=== PATIENT | female | born 1985 | race Caucasian/White ===

== ENCOUNTER 2019-08-28 15:29 | Emergency (ER) | payer OTHER, SELFPAY ==
[2019-08-28 15:39] VITALS: BP 129/89; PULSE 70; RESP 16; TEMP 36.6; O2SAT 100
--- NOTE | 2019-08-28 15:46 | ED.WOUNDLAC ---
HPI - Wound/Laceration General Chief Complaint: Wound/Laceration Stated Complaint: spider bite Time Seen by Provider: 08/28/19 15:46 Source: patient and RN notes reviewed Mode of arrival: ambulatory Limitations: no limitations History of Present Illness HPI narrative: This is a 34 years old male presents to the office for an evaluation of possible infected insect bite. She got bit by something this morning when she went out to clean the picnic table. It was itching at first; however the affect area is painful with increase swelling and redness. Td up-to-date. Denies history of MRSA. Related Data Home Medications Medication Instructions Recorded Confirmed cetirizine 10 mg tablet See Rx Instructions .ROUTE .COMPLEX 02/14/19 omeprazole 08/28/19 Allergies Allergy/AdvReac Type Severity Reaction Status Date / Time hydrocodone Allergy Mild RASH, Unverified 06/14/17 15:59 NAUSEA NSAIDS (Non-Steroidal AdvReac Other Verified 08/28/19 15:53 Anti-Inflamma Review of Systems Review of Systems: Narrative: CONSTITUTIONAL: Denies fever or chills ENT: Denies congestion CARDIOVASCULAR: Denies chest pain RESPIRATORY: Denies cough GASTROINTESTINAL: Denies nausea, vomiting SKIN: Reports left thigh got insect bite with redness, swelling MUSCULOSKELETAL: Denies any other injury NEUROLOGIC: Denies lightheaded PMFSH Past Medical History Medical History (Updated 08/28/19 @ 16:00 by KRISTIN Watt) Morbid obesity due to excess calories Primary osteoarthritis involving multiple joints Surgical History Surgical History (Updated 08/28/19 @ 16:00 by KRISTIN Watt) Hx of gastric bypass Social History Social History Smoking status: Never smoker Alcohol intake: never Comments At time of signature, I agree with nursing past medical, surgical, social and family history. There is no relevant family history pertinent to the presenting complaint. Exam Narrative: Exam Narrative: GENERAL: This is a well-nourished, well-developed patient, in no apparent distress. CARDIOVASCULAR: Regular rate and rhythm without murmurs, gallops, or rubs. RESPIRATORY: Clear to auscultation. Breath sounds equal bilaterally. No wheezes, rales, or rhonchi. GASTROINTESTINAL: Abdomen soft, non-tender, nondistended. Bowel sounds are active. No guarding. NEURO: awake, alert, and oriented to person, place and time. There were no obvious focal neurologic abnormalities. Steady gait EXTREMITIES: left medial aspect below knee noted a circular-dimpling nodule with erythema, edematous with tenderness and warmth to palpation. NO lymphandenitis. Normal ROM in lower extremities. [place] Coma Scale Eye Opening: Spontaneous 4 [place] Coma Scale Motor: Obeys Commands 6 [place] Coma Scale Verbal: Oriented 5 Course Vital Signs Vital signs: Vital Signs Temperature 97.8 F 08/28/19 15:39 Pulse Rate 70 08/28/19 15:39 Respiratory Rate 16 08/28/19 15:39 Blood Pressure 129/89 08/28/19 15:39 Pulse Oximetry 100 08/28/19 15:39 Temperature 97.8 F 08/28/19 15:39 Pulse Rate 70 08/28/19 15:39 Respiratory Rate 16 08/28/19 15:39 Blood Pressure 129/89 08/28/19 15:39 Pulse Oximetry 100 08/28/19 15:39 MDM - Wound/Laceration MDM Narrative Medical decision making narrative: Discharge instructions reviewed with patient, as well as provided in writing per nursing staff. The instructions also include specific and strict return/GO TO THE ER as well as f/u information. All questions have been answered, and the patient deny any further questions with discharge and discharge plan. Differential Diagnosis Differential diagnosis: Likely abscess and other (insect bite, cellultitis) Critical Care Time Critical Care Time Critical Care Time: No Discharge Plan Discharge Clinical Impression: Infected insect bite Qualifiers: Encounter type: initial encounter Q
== END 2019-08-28 15:58 | disposition home or self-care (01) ==
PROVIDERS: Emergency Provider Nurse Practitioner; PCP Emergency Medicine
DX: S70.362A Insect bite (nonvenomous), left thigh, initial encounter (principal); Z98.84 Bariatric surgery status; M19.90 Unspecified osteoarthritis, unspecified site; E66.01 Morbid (severe) obesity due to excess calories; Z68.41 Body mass index [BMI] 40.0-44.9, adult; W57.XXXA Bitten or stung by nonvenomous insect and other nonvenomous arthropods, initial encounter
CPT/HCPCS: 99213; G0463

== ENCOUNTER 2019-09-01 16:30 | Emergency (ER) | payer OTHER, SELFPAY ==
[2019-09-01 16:32] VITALS: BP 134/85; PULSE 65; RESP 18; TEMP 36.2; O2SAT 100
--- NOTE | 2019-09-01 16:36 | ED.GENADULT ---
HPI - General Adult General Chief complaint: Wound/Laceration Stated complaint: Spider bite Time Seen by Provider: 09/01/19 16:34 Source: patient Mode of arrival: ambulatory Limitations: no limitations History of Present Illness HPI narrative: Patient is a 34-year-old female who presents for evaluation of wound to left knee. Patient reports that she may have been bitten by a bug or some sort of spider when she was working outside a week ago. Wound was initially noticed on 08/27, patient was seen at urgent care, and she was prescribed Bactrim. Patient has approximately 2 days left of this medication. Patient states that the wound continues to grow in size, somewhat itchy in nature. No discharge from the wound. No leaking or purulent matter. Nonpainful. No history of allergic reactions. No tick exposures. No similar wounds or history of skin infections. Patient does not believe she had any sort of heat burn or chemical exposure that would burn the skin. Related Data Home Medications Medication Instructions Recorded Confirmed cetirizine 10 mg tablet See Rx Instructions .ROUTE .COMPLEX 02/14/19 omeprazole 08/28/19 Allergies Allergy/AdvReac Type Severity Reaction Status Date / Time hydrocodone Allergy Mild RASH, Unverified 09/01/19 16:41 NAUSEA acetaminophen [From Percocet] Allergy Rash Verified 09/01/19 16:41 oxycodone [From Percocet] Allergy Rash Verified 09/01/19 16:41 NSAIDS (Non-Steroidal AdvReac Other Verified 09/01/19 16:41 Anti-Inflamma Review of Systems Review of Systems: Narrative: CONSTITUTIONAL: Denies fever CARDIOVASCULAR: Denies chest pain RESPIRATORY: Denies cough or dyspnea. GASTROINTESTINAL: Denies abdominal pain SKIN: Denies rash reports wound to the left knee MUSCULOSKELETAL: Denies back pain NEUROLOGIC: Denies headache [facility] Past Medical History Medical History Morbid obesity due to excess calories Primary osteoarthritis involving multiple joints Surgical History Surgical History Hx of gastric bypass Social History Social History Smoking status: Never smoker Alcohol intake: never Exam Narrative: Exam Narrative: GENERAL: Awake, alert, conversant HEAD: Normocephalic, atraumatic. EYES: PERRLA and EOMI. ENT: Nares clear, no rhinorrhea or epistaxis. Mucous membranes moist. NECK: Supple. CHEST: No respiratory distress, breathing even and non labored HEART: Regular rate, sinus rhythm ABDOMEN:Non distended, non tender EXTREMITIES: Normal range of motion. No edema. SKIN: Warm, dry, no rash. Approximately 3 cm x 3 cm circular wound with raised edges, slightly purpleish center, without ecchymoses, excoriation or purulent discharge. Mild warmth, mild erythema. No streaking erythema. No sign of abscess. No petechiae. NEURO:No focal deficits. Alert and oriented x3 Course Vital Signs Vital signs: Vital Signs Temperature 36.2 C L 09/01/19 16:32 Pulse Rate 65 09/01/19 16:32 Respiratory Rate 18 09/01/19 16:32 Blood Pressure 134/85 09/01/19 16:32 Pulse Oximetry 100 09/01/19 16:32 Temperature 36.2 C L 09/01/19 16:32 Pulse Rate 65 09/01/19 16:32 Respiratory Rate 18 09/01/19 16:32 Blood Pressure 134/85 09/01/19 16:32 Pulse Oximetry 100 09/01/19 16:32 Medical Decision Making [facility] Narrative Medical decision making narrative: Patient with wound that does not appear to be acute cellulitis, but may also have some delayed hypersensitivity reaction. Patient does report it is somewhat itchy. No systemic signs of illness. Patient denies any heat or chemical exposure that would be a chemical or heat irritation, no burn type reaction. Patient has been on Bactrim with some improvement, but not much improvement. We will expand to Keflex, and I also advised dermatology and PCP follow-up.
== END 2019-09-01 17:13 | disposition home or self-care (01) ==
PROVIDERS: Emergency Provider Emergency Medicine; PCP Emergency Medicine
DX: L03.116 Cellulitis of left lower limb (principal); E66.09 Other obesity due to excess calories; Z68.41 Body mass index [BMI] 40.0-44.9, adult; M19.90 Unspecified osteoarthritis, unspecified site; Z98.84 Bariatric surgery status
CPT/HCPCS: 99283

== ENCOUNTER 2022-04-05 22:45 | Emergency (ER) | payer OTHER, SELFPAY ==
--- NOTE | ~2022-04-05 | CT_ITS ---
Noncontrast CT scan of the cervical spine Technique: Multiple contiguous axial [address] images of the cervical spine were obtained and rec onstructed in 2D sagittal and coronal planes on the acquisition scanner. Dose reduction technique was used on this scan by utilizing automated exposure control, adjustment of the mA and/or kV according to patient size. Clinical History: Pain Findings: No fractures or dislocations. Unremarkable visualized bony structures. The intervertebral disc spaces are preserved. No prevertebral soft tissue swelling. Impression: No fracture or subluxation of the cervical spine. Reviewed, dictated and finalized at location [facility] Impression: No fracture or subluxation of the cervical spine.
--- NOTE | ~2022-04-05 | CT_ITS ---
Non-contrast Head CT History: Head injury Technique: Axial non-contrast imaging of the brain was performed. Dose reduction technique was used on this scan by utilizing automated exposure control and iterative reconstruction technique. The dose -length product (DLP) was 605.33 mGy-cm. Findings: There is no evidence of intracranial hemorrhage, mass lesion, or acute infarct. Brain par enchyma appears normal. The ventricles and subarachnoid spaces are normal in size. The calvarium ap pears normal. The visualized paranasal sinuses and mastoid air cells are clear. There is mild soft t issue swelling in the left frontal scalp. Impression: No intracranial abnormality seen. Mild soft tissue swelling in the left frontal scalp. Reviewed, dictated and finalized at [facility]. RNMENT AFFAIRS FELLOW Impression: No intracranial abnormality seen. Mild soft tissue swelling in the left frontal scalp.
[2022-04-05 22:50] VITALS: BP 155/91; PULSE 99; RESP 20; TEMP 36.4; O2SAT 100
--- NOTE | 2022-04-06 00:16 | PC.NURSE ---
Ice pack given to pt
--- NOTE | 2022-04-06 02:05 | ED.FALL ---
HPI - Fall General Chief Complaint: Fall Stated Complaint: fall-head injury Time Seen by Provider: 04/06/22 01:49 History of Present Illness HPI Narrative: Patient was in the basement when she slipped on water, and hit her head, she thinks that she did pass out for a minute, her daughter found her and brought her in. She did have a few drinks earlier. She did throw up, she is now feeling well other than the headache, no focal numbness or weakness, she is ambulating without issues. Does have some photophobia. Related Data Home Medications Medication Instructions Recorded Confirmed cetirizine 10 mg tablet See Rx Instructions .Route .COMPLEX 02/14/19 omeprazole 40 mg capsule,delayed 08/28/19 release Allergies Allergy/AdvReac Type Severity Reaction Status Date / Time hydrocodone Allergy Mild RASH, Unverified 09/01/19 16:41 NAUSEA acetaminophen [From Percocet] Allergy Rash Verified 09/01/19 16:41 oxycodone [From Percocet] Allergy Rash Verified 09/01/19 16:41 NSAIDS (Non-Steroidal AdvReac Other Verified 09/01/19 16:41 Anti-Inflamma Review of Systems Review of Systems: CONST: No fever. HEENT: Head trauma C/V: No chest pain RESP: No cough GI: Reports nausea and vomiting : No dysuria. M/S: No joint pain. SKIN: Swelling to left forehead NEURO: [Headache, no focal numbness or weakness] PSYCH: [No depression] PMFSH Past Medical History Medical History Morbid obesity due to excess calories Primary osteoarthritis involving multiple joints Surgical History Surgical History Hx of gastric bypass Social History Social History Smoking status: Never smoker Alcohol intake: never Exam Narrative: EXAMINATION OF ORGAN SYSTEMS/BODY AREAS: Constitutional: Vital signs per nursing GENERAL: Nontoxic appearing, but does appear somewhat uncomfortable HEAD: hematoma to left forehead. EYES: EOMI, conjunctiva normal ENT: Hearing grossly intact LUNGS: Nonlabored breathing. HEART: [Regular rate and rhythm] ABD: [Soft], nontender EXT: Normal range of motion SKIN: Left forehead bruising NEURO: [Alert and oriented x 3. No gross focal sensory or strength deficits.] Ambulating with normal gait. PSYCH: Normal affect Course Vital Signs Vital signs: Vital Signs Temperature 97.6 F 04/05/22 22:50 Pulse Rate 99 04/05/22 22:50 Respiratory Rate 20 04/05/22 22:50 Blood Pressure 155/91 H 04/05/22 22:50 Pulse Oximetry 100 04/05/22 22:50 Oxygen Delivery Room Air 04/05/22 22:50 Temperature 97.6 F 04/05/22 22:50 Pulse Rate 99 04/05/22 22:50 Respiratory Rate 20 04/05/22 22:50 Blood Pressure 155/91 H 04/05/22 22:50 Pulse Oximetry 100 04/05/22 22:50 Oxygen Delivery Room Air 04/05/22 22:50 MDM - Fall MDM Narrative Medical decision making narrative: 37-year-old female presents after mechanical fall with head injury, vital signs stable, neurologic exam intact, though she does appear somewhat uncomfortable, CT head obtained as per [place] CT head rules she did have episodes of vomiting, and CT C-spine obtained as she did have some alcoholic drinks earlier. These are unremarkable for any acute intracranial abnormality or fracture and reviewed independently by myself. I did offer her medications here for her symptoms however she would prefer to go home at this time, she is given strict precautions, as well as discussion of concussion, she is to follow-up with her primary care doctor. Patient and family member at bedside verbalized understanding and agreement with this plan. Lab Data Labs: UCG Bedside Result Negative Reference Range: Negative Discharge Plan Discharge Clinical Impression: Concussion Patient Disposition: Home, Self-Care Condition:
== END 2022-04-06 02:26 | disposition home or self-care (01) ==
PROVIDERS: Emergency Provider Emergency Medicine; PCP Emergency Medicine
DX: S06.0X1A Concussion with loss of consciousness of 30 minutes or less, initial encounter (principal); S00.83XA Contusion of other part of head, initial encounter; E66.01 Morbid (severe) obesity due to excess calories; Z68.33 Body mass index [BMI] 33.0-33.9, adult; M19.90 Unspecified osteoarthritis, unspecified site; Z98.84 Bariatric surgery status; W01.0XXA Fall on same level from slipping, tripping and stumbling without subsequent striking against object, initial encounter
CPT/HCPCS: 70450; 72125; 81025; 99284

== ENCOUNTER 2022-04-20 08:21 | Emergency (ER) | payer OTHER, SELFPAY ==
--- NOTE | 2022-04-20 08:28 | ED.URI ---
HPI - URI/Sore Throat General Chief Complaint: Upper Respiratory Infection Stated Complaint: Sinus Time Seen by Provider: 04/20/22 08:30 Source: patient Mode of arrival: ambulatory Limitations: no limitations History of Present Illness HPI Narrative: Pio is a 37-year-old female patient presenting to the clinic today with complaints of possible sinus infection. She reports she has nasal congestion and sinus pressure. Denies any fever or chills. Denies any known exposure to anybody with COVID, flu, or strep. States that the symptoms have been going on for approximately 4 days. MD elicited complaint: nasal congestion and sinus pain Related Data Home Medications Medication Instructions Recorded Confirmed cetirizine 10 mg tablet 10 mg PO DAILY 02/14/19 omeprazole 40 mg capsule,delayed 40 mg PO DAILY 08/28/19 release Allergies Allergy/AdvReac Type Severity Reaction Status Date / Time hydrocodone Allergy Mild RASH, Verified 04/20/22 08:25 NAUSEA acetaminophen [From Percocet] Allergy Rash Verified 04/20/22 08:25 oxycodone [From Percocet] Allergy Rash Verified 04/20/22 08:25 NSAIDS (Non-Steroidal AdvReac Other Verified 04/20/22 08:25 Anti-Inflamma Review of Systems Review of Systems: Pertinent positives per HPI. Patient denies any fever, chills, rash, headache, visual changes, dizziness, cough, shortness of breath, chest pain, palpitations, nausea, vomiting, diarrhea, constipation, abdominal pain, or any urinary issues. [facility] Past Medical History Medical History (Updated 04/20/22 @ 08:34 by Cameron Agudelo, SHIRA) Morbid obesity due to excess calories Primary osteoarthritis involving multiple joints Surgical History Surgical History Hx of gastric bypass Social History Social History Smoking status: Never smoker Alcohol intake: never Comments At the time of my signature, I reviewed and agree with the nursing past medical, surgical, social, and family history. There is no relevant family history pertinent to the patient complaint. Exam Narrative: General: Well-developed,obese, in no apparent distress Head: Normocephalic, atraumatic Eyes: Pupils equally round and reactive to light bilaterally, EOM intact, sclera and conjunctive clear, no discharge, lids normal Ears: TMs intact and clear, ear canals clear, no drainage, grossly hearing normal. Nose: Nares patent, clear nasal discharge, moderate inflammation, maxillary sinus tenderness. Mouth: Oral pharynx without lesions or masses, good dentition, MMM. PND Neck: Supple, trachea midline, no enlargement of anterior or posterior cervical nodes, no thyroid masses or goiter palpable. Cardio: Regular rate and rhythm, s1 and s2 normal, no murmur appreciated. Resp: Clear to auscultation bilaterally, no rhonchi, rales, wheezing or rubs Course Course Emergency Course: Portions of this record may have been created with voice recognition software. Level of Care: Express Care Visit Vital Signs Vital signs: Vital signs reviewed MDM - URI/Sore Throat MDM Narrative Medical decision making narrative: At the time of visit patient is resting comfortably on the exam table. Offered to COVID test patient she declines today. I suspect patient has an upper respiratory infection. Supportive measures were discussed with the patient she voiced understanding of discharge instructions. Prescription for prednisone was sent to the pharmacy to help with the congestion and the pressure. Differential Diagnosis Differential diagnosis: Likely upper respiratory infection, otitis media, sinusitis, viral infection, bronchitis, influenza, pharyngitis and other ( COVID) Discharge Plan Discharge Clinical Impression: Upper respiratory infection Patient Disposition: Home, Self-Care Condition: Stable Instructions: Antibiotic Form, Upper Respirator
[2022-04-20 08:29] VITALS: BP 148/85; PULSE 108; RESP 16; TEMP 36.9; O2SAT 99
== END 2022-04-20 08:39 | disposition home or self-care (01) ==
PROVIDERS: Emergency Provider Nurse Practitioner Family; PCP Emergency Medicine
DX: J06.9 Acute upper respiratory infection, unspecified (principal); E66.01 Morbid (severe) obesity due to excess calories; Z68.31 Body mass index [BMI] 31.0-31.9, adult; M15.9 Polyosteoarthritis, unspecified
CPT/HCPCS: 99213; G0463